=== PATIENT | female | born 1980 | race Caucasian/White ===

== ENCOUNTER 2018-07-31 10:58 | Day surgery (SDC) | payer BC ==
[2018-07-31 11:42] LABS: HCG URINE QUALITATIVE NEGATIVE
[2018-07-31] MEDS ORDERED: TRIAMCINOLONE ACETONIDE 40 MG/ML SUS IU ONE (12:01)
[2018-07-31 12:19] VITALS: BP 120/75; PULSE 83; RESP 18; TEMP 97.4; O2SAT 100
== END 2018-07-31 12:33 | disposition home or self-care (01) ==
LOC: SURG 10:58
PROVIDERS: ATTEND Nurse Anesthetist, Certified Registered
DX: M25.552 Pain in left hip (principal)
CPT/HCPCS: 84703; J3300

== ENCOUNTER 2018-09-25 12:41 | Day surgery (SDC) | payer BC ==
[2018-09-25] MEDS ORDERED: BUPIVACAINE HCL 0.5% MPF 10 ML SOL ONE (13:11)
[2018-09-25 13:51] VITALS: BP 115/71; PULSE 83; RESP 20; TEMP 98.7; O2SAT 98
== END 2018-09-25 14:10 | disposition home or self-care (01) ==
LOC: SURG 12:41
PROVIDERS: ATTEND Nurse Anesthetist, Certified Registered
DX: M12.88 Other specific arthropathies, not elsewhere classified, other specified site (principal)

== ENCOUNTER 2018-10-17 08:39 | Day surgery (SDC) | payer BC ==
[2018-10-17 09:14] VITALS: TEMP 97.7
[2018-10-17] MEDS ORDERED: LIDOCAINE HCL 2% MPF 10 ML SOL ONE (09:25)
[2018-10-17] MEDS ORDERED: LIDOCAINE HCL 1% MPF 30 SOL ONE (09:25)
[2018-10-17 09:41] VITALS: O2SAT 99
[2018-10-17 09:53] VITALS: PULSE 82; RESP 16
[2018-10-17 10:08] VITALS: BP 115/70
== END 2018-10-17 10:17 | disposition home or self-care (01) ==
LOC: SURG 08:39
PROVIDERS: ATTEND Nurse Anesthetist, Certified Registered
DX: M12.88 Other specific arthropathies, not elsewhere classified, other specified site (principal)
CPT/HCPCS: J2001

== ENCOUNTER 2018-12-10 08:19 | Day surgery (SDC) | payer BC ==
[2018-12-10] MEDS ORDERED: SODIUM CHLORIDE 0.9% FLUSH 10 ML SOL IV ONE (08:51)
[2018-12-10] MEDS ORDERED: FENTANYL 100MCG/2ML SOL ONE (08:54)
[2018-12-10] MEDS ORDERED: LIDOCAINE HCL 2% MPF 10 ML SOL ONE (09:05)
[2018-12-10] MEDS ORDERED: BUPIVACAINE HCL 0.25% MPF 30 ML SOL INFIL ONE (09:05)
[2018-12-10] MEDS ORDERED: LIDOCAINE HCL 1% MPF 30 SOL ONE (09:05)
[2018-12-10] MEDS: MIDAZOLAM 2 MG/2 ML SOL ONE ×2 (09:09→09:25)
[2018-12-10] MEDS: TRIAMCINOLONE ACETONIDE 40 MG/ML SUS ONE ×2 (09:33→09:42)
[2018-12-10 10:05] VITALS: BP 120/72; PULSE 76; RESP 14; TEMP 98.1; O2SAT 97
== END 2018-12-10 10:30 | disposition home or self-care (01) ==
LOC: SURG 08:19
PROVIDERS: ATTEND Nurse Anesthetist, Certified Registered
DX: M12.9 Arthropathy, unspecified (principal); M25.552 Pain in left hip; M16.12 Unilateral primary osteoarthritis, left hip
CPT/HCPCS: J2250; J3010; J2001; J3300